=== PATIENT | female | born 2000 | race Two or more races ===

== ENCOUNTER 2025-01-02 15:18 | Emergency (ER) | payer OTHER ==
[~2025-01-02] VITALS: Ht 170.2 cm; Wt 54.4 kg
[2025-01-02] MEDS ORDERED: CLONAZEPAM1 M1 PO (15:50)
[2025-01-02] MEDS ORDERED: TRAZODONE HCL50 MG PO (15:51)
[2025-01-02] MEDS ORDERED: PRILOSEC OTC20 MG (15:51)
[2025-01-02] MEDS ORDERED: LEXAPRO20 MG PO (15:51)
[2025-01-02] MEDS ORDERED: PEPTO-BISM525 MG/15 PO (16:27)
[2025-01-02] MEDS ORDERED: CLARITHROMYCIN500 M1 PO (16:27)
[2025-01-02] MEDS ORDERED: AUGMENTIN XR 11 EACH PO (16:27)
[2025-01-02] MEDS ORDERED: ZOFRAN8 MG PO (16:27)
[2025-01-02] MEDS ORDERED: PROTONIX40 MG PO (16:27)
[2025-01-02] MEDS ORDERED: LEVSIN/SL0.125 MG SL (16:27)
[2025-01-02] MEDS ORDERED: ONDANSETRON HCL 2 MG/ML VIAL IM ONE (16:30)
[2025-01-02] MEDS ORDERED: FAMOtidine 10 MG/ML (4ML VIAL) IV PUSH ONE (16:30)
[2025-01-02] MEDS ORDERED: ONDANSETRON HCL 2 MG/ML VIAL ONE (16:53)
[2025-01-02] MEDS ORDERED: FAMOTIDINE/PF 20 MG/2 ML VIAL ONE (16:53)
== END 2025-01-02 18:00 | disposition home or self-care (01) ==
LOC: ER 15:19
DX: K27.9 Peptic ulcer, site unspecified, unspecified as acute or chronic, without hemorrhage or perforation (principal); A04.8 Other specified bacterial intestinal infections; K21.9 Gastro-esophageal reflux disease without esophagitis